=== PATIENT | male | born 1935 | race Caucasian/White ===

== ENCOUNTER → 2017-09-15 16:25 | Outpatient (CLI) | payer MEDICARE ==
[2017-09-17 06:16] LABS: RAPID PLASMA REAGIN Non Reactive (Non Reactive)
== END | disposition home or self-care (01) ==
LOC: D.LABREF 16:25
PROVIDERS: Student in an Organized Health Care Education/Training Program
DX: H66.009 Acute suppurative otitis media without spontaneous rupture of ear drum, unspecified ear (principal); Z11.9 Encounter for screening for infectious and parasitic diseases, unspecified

== ENCOUNTER → 2017-09-20 12:29 | Outpatient (CLI) | payer MEDICARE | END | disposition home or self-care (01) | LOC: D.LABREF 12:29 | DX: H66.009 Acute suppurative otitis media without spontaneous rupture of ear drum, unspecified ear (principal); Z11.9 Encounter for screening for infectious and parasitic diseases, unspecified ==

== ENCOUNTER → 2017-09-28 10:31 | Outpatient (CLI) | payer MEDICARE | END | disposition home or self-care (01) | LOC: D.RAD 10:31 | DX: R76.11 Nonspecific reaction to tuberculin skin test without active tuberculosis (principal) ==

== ENCOUNTER → 2017-10-12 14:37 | Outpatient (CLI) | payer MEDICARE ==
[2017-10-15 13:18] LABS: FUNGUS STAIN Final report (())
[2017-11-10 08:22] LABS: FUNGUS MYCOLOGY CULTURE Final report (())
== END | disposition home or self-care (01) ==
LOC: D.LABREF 14:37
PROVIDERS: Otolaryngology
DX: H66.91 Otitis media, unspecified, right ear (principal)